=== PATIENT | male | born 1975 | race Caucasian/White ===

== ENCOUNTER 2017-12-11 11:35 | Emergency (ER) | payer OTHER ==
[~2017-12-11] VITALS: Ht 177.8 cm; Wt 61.3 kg
[~2017-12-11 11:35] MED LIST: BUPR-79 PO; IBUP-1050 PO; OMEP10CA2 PO
[2017-12-11 11:40] VITALS: TEMP 36.9; Ht 177.8 cm; Wt 61.3 kg
[2017-12-11] MEDS ORDERED: KETOROLAC TROMETHAMINE 15 MG/ML VIAL IV STA (12:06)
[2017-12-11] MEDS ORDERED: DiphenhydrAMINE HCL 50 MG/ML VIAL IV STA (12:06)
[2017-12-11] MEDS ORDERED: PROCHLORPERAZINE 5 MG/ML 2 ML VIAL IV STA (12:06)
[2017-12-11] MEDS ORDERED: ACET-1256 PO (12:29)
[2017-12-11 12:35] LABS: BASO % 0.3 %; BASO ABS # 0.02 K/uL (0-0.2); EOS % 2.5 %; EOS ABS # 0.15 K/uL (0-0.5); HEMATOCRIT 44.8 % (42-52); HEMOGLOBIN 15.4 g/dL (14.0-18.0); IG# 0.01 K/uL (0.00-0.02); LYMPH % 27.6 %; LYMPH ABS # 1.66 K/uL (1.2-3.4); MEAN CELL VOLUME 91.6 fL (80-100); MEAN CORPUSCULAR HEMOGLOBIN 31.5 pg (25-34); MEAN CORPUSCULAR HGB CONC 34.4 g/dl (32-36); MONO % 6.7 %; NEUT % 62.7 %; NEUT ABS # 3.77 K/uL (1.4-6.5); PLATELET COUNT 233 K/uL (130-400); RED CELL DISTRIBUTION WIDTH CV 12.8 % (11.5-14.5); RED CELL DISTRIBUTION WIDTH SD 42.8 fL (36.4-46.3); WHITE BLOOD COUNT 6.01 K/uL (4.8-10.8)
[2017-12-11] MEDS ORDERED: KETOROLAC TROMETHAMINE 30 MG/ML VIAL ONE (12:46)
--- NOTE | 2017-12-11 12:46 | DIAGNOSTIC IMAGING REPORT ---
HEAD WITHOUT CONTRAST (CT) CLINICAL HISTORY: 42 years-old Male presenting with left sided headache, hx TBI. TECHNIQUE: Multidetector CT imaging of the head was performed without the use of intravenous contrast. IV contrast: None. A dose lowering technique was used consistent with the principles of ALARA (as low as reasonably achievable). COMPARISON: 12/20/2008. CT DOSE (mGy.cm): The estimated cumulative dose is 537.48 mGy.cm. FINDINGS: Small Business Director topogram: Unremarkable. There has been interval right pterional craniotomy with a prosthetic mesh overlying the site. Ventricles and sulci normal in size. Brain parenchyma normal in appearance with preserved lisa-white differentiation. No mass effect or midline shift. No hemorrhage or acute territorial infarct. No extra-axial fluid collection. Paranasal sinuses and mastoid air cells clear. IMPRESSION: 1. No acute intracranial abnormality. 2. Postsurgical changes of right pterional craniotomy. Electronically signed by: aRciel Hammer M.D. 12/11/2017 12:45 PM Dictated Date/Time: 12/11/2017 12:41 PM
[2017-12-11 12:52] LABS: CALCIUM 9.2 mg/dl (8.5-10.1); CREATININE 0.98 mg/dl (0.60-1.40); POTASSIUM 3.8 mmol/L (3.5-5.1)
--- NOTE | 2017-12-11 12:54 | EMERGENCY ROOM VISIT NOTE ---
History First contact with patient: 11:45 Chief Complaint: HEAD PAIN Stated Complaint: PAIN LEFT SIDE OF HEAD History of Present Illness The patient is a 42 year old male who presents to the Emergency Room with complaints of a left-sided headache. The patient states that he has a throbbing pain in the left side of his head. This has been intermittent for the past 2 days. The pain radiates into the back of the head and behind the eye. He describes it as a pressure sensation and rates the discomfort as 6/10. He has associated difficulty focusing and his says that he has been more irritated than normal. He has taken Tylenol which did help the pain. The patient has a history of a traumatic brain injury in 2016. A tree fell on the right side of his head at that time. His reports he had surgeries in [facility]. The patient does admit that when he becomes frustrated, he sometimes hits his head off of things. He last did this 2 days ago, prior to the onset of the headache. He denies visual changes, slurred speech, nausea/ vomiting, neck pain, fever, numbness or weakness. Review of Systems A complete 10 point review of systems was reviewed with the patient with pertinent positives and negatives as per history of present illness. All else were negative. Past Medical/Surgical History Medical Problems: (1) Asthma Family History Cancer Lung disease Social History Smoking Status: Never Smoker Smokeless Tobacco Use: Yes Alcohol Use: occasionally Marital Status: Housing Status: lives with family Occupation Status: unemployed Current/Historical Medications Scheduled Omeprazole (Prilosec), 10 MG PO BID Scheduled PRN Acetaminophen (Tylenol), 1,000 MG PO Q6H PRN for Pain or Fever Ibuprofen (Advil), 200-600 MG PO Q4H PRN for Pain or Fever Physical Exam Vital Signs Date Time Temp Pulse Resp B/P (MAP) Pulse Ox O2 Delivery O2 Flow Rate FiO2 12/11/17 15:06 66 20 134/98 99 12/11/17 11:40 36.9 67 20 146/111 99 Room Air Physical Exam VITALS: Vitals are noted on the nurse's note and reviewed by myself. Vital signs stable. GENERAL: This is a 42-year-old male, in no acute distress, nondiaphoretic, well- developed well-nourished. SKIN: The skin was without rashes. HEAD: Normocephalic atraumatic. EARS: External auditory canals clear, tympanic membranes pearly lisa without erythema or effusion bilaterally. EYES: Pupils equal round and reactive to light and accommodation. Extraocular movements intact. MOUTH: Mucous membranes moist. Tonsils are not enlarged. Pharynx without erythema or exudate. NECK: Supple without nuchal rigidity. No lymphadenopathy. Cervical spine is nontender. HEART: Regular rate and rhythm without murmurs gallops or rubs. LUNGS: Clear to auscultation bilaterally without wheezes, rales or rhonchi. MUSCULOSKELETAL: Strength 5/5 throughout. NEURO: Patient was alert and oriented to person place and time. No focal neurological deficits. Medical Decision & Procedures ER Provider Diagnostic Interpretation: HEAD WITHOUT CONTRAST (CT) FINDINGS: Accounts Payable Specialist topogram: Unremarkable. There has been interval right pterional craniotomy with a prosthetic mesh overlying the site. Ventricles and sulci normal in size. Brain parenchyma normal in appearance with preserved lisa-white differentiation. No mass effect or midline shift. No hemorrhage or acute territorial infarct. No extra-axial fluid collection. Paranasal sinuses and mastoid air cells clear. IMPRESSION: 1. No acute intracranial abnormality. 2. Postsurgical changes of right pterional craniotomy. Laboratory Results 12/11/17 12:20 Red Blood Count 4.89, Mean Corpuscular Volume 91.6, Mean Corpuscular Hemoglobin 31.5, Mean Corpuscular Hemoglobin Concent 34.4, Mean Platelet Volume 9.0, Neutrophils (%) (Auto) 62.7, Lymphocytes (%) (Auto) 27.6, Monocytes (%) (Auto) 6.7, Eosinophils (%) (Auto) 2.5, Basophils (%) (Auto) 0.3, Neutrophils # (Auto) 3.77, Lymphocytes # (Auto) 1.66, Monocytes # (Auto) 0.40, Eosinophils # (Auto) 0.15, Basophils # (Auto) 0.02 12/11/17 12:20 Test 12/11/17 12:20 White Blood Count 6.01 K/uL (4.8-10.8) Red Blood Count 4.89 M/uL (4.7-6.1) Hemoglobin 15.4 g/dL (14.0-18.0) Hematocrit 44.8 % (42-52) Mean Corpuscular Volume 91.6 fL (80-100) Mean Corpuscular Hemoglobin 31.5 pg (25-34) Mean Corpuscular Hemoglobin Concent 34.4 g/dl (32-36) Platelet Count 233 K/uL (130-400) Mean Platelet Volume 9.0 fL (7.4-10.4) Neutrophils (%) (Auto) 62.7 % Lymphocytes (%) (Auto) 27.6 % Monocytes (%) (Auto) 6.7 % Eosinophils (%) (Auto) 2.5 % Basophils (%) (Auto) 0.3 % Neutrophils # (Auto) 3.77 K/uL (1.4-6.5) Lymphocytes # (Auto) 1.66 K/uL (1.2-3.4) Monocytes # (Auto) 0.40 K/uL (0.11-0.59) Eosinophils # (Auto) 0.15 K/uL (0-0.5) Basophils # (Auto) 0.02 K/uL (0-0.2) RDW Standard Deviation 42.8 fL (36.4-46.3) RDW Coefficient of Variation 12.8 % (11.5-14.5) Immature Granulocyte % (Auto) 0.2 % Immature Granulocyte # (Auto) 0.01 K/uL (0.00-0.02) Anion Gap 4.0 mmol/L (3-11) Est Creatinine Clear Calc Drug Dose 83.4 ml/min Estimated GFR () 108.2 Estimated GFR (Non- 93.4 BUN/Creatinine Ratio 13.3 (10-20) Calcium Level 9.2 mg/dl (8.5-10.1) Medications Administered Medications (Trade) Dose Ordered Sig/Ashley Route Start Time Stop Time Status Last Admin Dose Admin Ketorolac Tromethamine (Toradol Inj) 15 mg NOW STAT IV 12/11/17 12:12/11/17 12:08 DC 12/11/17 12:48 15 MG Diphenhydramine HCl (Benadryl Inj) 25 mg NOW STAT IV 12/11/17 12:06 12/11/17 12:08 DC 12/11/17 12:48 25 MG Prochlorperazine Edisylate (Compazine Inj) 5 mg NOW STAT IV 12/11/17 12:06 12/11/17 12:08 DC 12/11/17 12:49 5 MG Medical Decision The differential diagnosis includes acute intracranial bleed, meningitis, encephalitis, mass or mass effect, sinusitis, infection, tumor, headache, temporal arteritis and carbon monoxide exposure, and migraine. The patient is a 42-year-old male who presents today complaining of left-sided headache. No meningismus or neurological changes. Patient does admit that when he becomes frustrated, he often hits his head off of things. CT scan read by radiology and was negative. Labs revealed no leukocytosis, anemia or concerning electrolyte abnormalities. Patient was treated with IV Toradol, Benadryl and Compazine with relief. While the above workup was being performed, the patient's expressed concerns that the patient is very depressed and may be suicidal. According to her, he occasionally makes comments, alluding that he does not want to be alive. I did speak with the patient directly about this and he admits that he does feel depressed because he feels that all he does is sit at home and do nothing. He admits to using marijuana, which he feels helps his symptoms. He has recently quit using marijuana because his family has been prompting him to do so. He feels this has worsened his depression. He was seen by his primary care provider yesterday and prescribed an antidepressant but did not start this yet. He admits that occasionally he does make statements of passive suicidality , however he assures me that he has no active plans of hurting himself or others. I did have both the patient and speak with the mental health rn field case manager. The patient will be set up with psychiatric and counseling services as an outpatient. Based on the patient's presentation and work up, I feel the patient is stable for outpatient treatment. The patient was educated to return to the emergency department for any worsening of their current condition or new/concerning symptoms. He will follow up with psychiatry as well as his primary care provider. Head Trauma GCS Score: 15 Medication Reconcilliation Current Medication List: was personally reviewed by me Blood Pressure Screening Patient's blood pressure: Normal blood pressure Impression Primary Impression: Headache Additional Impression: Depression Departure Information Dispostion Home / Self-Care Condition GOOD Referrals Deneen Foy,C.R.N.P. (PCP) Patient Instructions My [facility] Additional Instructions Case management will contact you Wednesday regarding psychiatric and therapy appointments. Begin taking the medication prescribed to you by her primary care provider. For pain control, you can use the following [id number] medicines (if >12 yo): - Regular strength (325mg/tab) Tylenol (acetaminophen) 2 tabs every 4-6 hours as needed. Do not exceed 12 tablets in a 24 hour period. Avoid taking more than 4 grams (4000 mg) of Tylenol per day. This includes any other sources of acetaminophen you may take on a regular basis. - Regular strength (200 mg/tab) Advil (ibuprofen) 1-2 tabs every 4-6 hours as needed. Do not exceed a dose of 3200 mg per day. Return to the ER with any worsening or new/concerning symptoms. Problem Qualifiers Primary Impression: Headache Headache type: unspecified Headache chronicity pattern: acute headache Intractability: not intractable Qualified Codes: R51 - Headache Additional Impression: Depression Depression Type: unspecified Qualified Codes: F32.9 - Major depressive disorder, single episode, unspecified
[2017-12-11 15:06] VITALS: BP 134/98; PULSE 66; O2SAT 99
== END 2017-12-11 15:06 | disposition home or self-care (01) ==
LOC: C.EDB 11:37 → C.EDC 15:06
DX: R51 Headache (principal); F32.9 Major depressive disorder, single episode, unspecified; J45.909 Unspecified asthma, uncomplicated; Z79.899 Other long term (current) drug therapy; Z87.828 Personal history of other (healed) physical injury and trauma; Z83.6 Family history of other diseases of the respiratory system